=== PATIENT | male | born 1955 ===

== ENCOUNTER 2016-12-03 17:16 | Observation (INO) | payer OTHER ==
[2016-12-03 17:54] VITALS: TEMP 98.1
[2016-12-03] MEDS ORDERED: Iohexol 240 (50 ml) ONE (18:42)
[2016-12-03 18:45] LABS: BASO # 0.1 K/uL (0.0-0.2); BASO % 0.8 % (0.0-2.0); EOS # 0.2 K/uL (0.0-0.7); HEMATOCRIT 37.4 % (35.0-51.0); LYMPH # 2.8 K/uL (1.0-4.3); LYMPH % 35.1 % (20.0-40.0); MEAN CORPUSCULAR HEMOGLOBIN 32.5 pg (27.0-31.0); MEAN CORPUSCULAR HGB CONC 34.6 g/dL (33.0-37.0); MEAN PLATELET VOLUME 8.1 fl (7.2-11.7); MONO # 0.8 K/uL (0.0-0.8); NEUT % 51.1 % (50.0-75.0); NRBC % 0.1 % (0.0-0.0); RED CELL DISTRIBUTION WIDTH 12.6 % (11.5-14.5); WHITE BLOOD COUNT 7.9 K/uL (4.8-10.8)
[2016-12-03] MEDS ORDERED: Iohexol 240 (50 ml) PO ONE (18:45)
[2016-12-03] MEDS ORDERED: Sodium Chloride 0.9% 1,000 ML IV STA (18:46)
--- NOTE | 2016-12-03 19:01 | ED PDOC ---
HPI: Abdomen Time Seen by Provider: 12/03/16 18:00 Chief Complaint (Nursing): Abdominal Pain Chief Complaint (Provider): abdmonal pain History Per: Project Financial Analyst (Rosa Angela via [employer] ) History/Exam Limitations: language barrier (mohawk ) Onset/Duration Of Symptoms: Days (x 1) Outside of [place] travel?: No Location Of Pain/Discomfort: RUQ Associated Symptoms: denies: Fever, Chills, Nausea, Vomiting, Diarrhea Additional Complaint(s): Cody Taylor is a 61 year old male, with no previous medical history, who presents to the ED with complaints of right upper quadrant pain which began yesterday. Patient denies any fever, diarrhea, nausea or vomiting. Patient states to undergoing a cholecystectomy 3 months prior. PMD:none provided Past Medical History Reviewed: Historical Data, Nursing Documentation, Vital Signs Vital Signs: Last Vital Signs Temp 98.1 F 12/03/16 22:25 Pulse 87 12/03/16 22:25 Resp 16 12/03/16 22:25 BP 157/113 H 12/03/16 22:25 Pulse Ox 98 12/04/16 04:50 - Medical History PMH: No Chronic Diseases - Surgical History Surgical History: Cholecystectomy - Family History Family History: States: No Known Family Hx - Social History Current smoker - smoking cessation education provided: No Ex-Smoker (has not smoked in the last 12 months): Yes Alcohol: None Drugs: Denies - Home Medications Home Medications: Ambulatory Orders Medication Instructions Recorded Polyethylene Glycol 3350 [Miralax] 17 g PO QAM PRN #7 pkg 12/03/16 - Allergies Allergies/Adverse Reactions: Allergies Allergy/AdvReac Type Severity Reaction Status Date / Time No Known Allergies Allergy Verified 12/03/16 17:50 Review of Systems ROS Statement: Except As Marked, All Systems Reviewed And Found Negative Constitutional: Negative for: Fever, Chills Gastrointestinal: Positive for: Abdominal Pain (RUQ). Negative for: Nausea, Vomiting, Diarrhea Physical Exam - Reviewed Nursing Documentation Reviewed: Yes Vital Signs Reviewed: Yes - Physical Exam Appears: Positive for: Well, Non-toxic, No Acute Distress Cardiovascular/Chest: Positive for: Regular Rate, Rhythm Respiratory: Positive for: CNT, Normal Breath Sounds Gastrointestinal/Abdominal: Positive for: Tenderness (RUQ), Distended, Other ( surgical scar noted). Negative for: Mass, Guarding, Rebound Neurologic/Psych: Positive for: Alert, Oriented - Laboratory Results Result Diagrams: 12/03/16 18:40 12/03/16 18:40 - ECG O2 Sat by Pulse Oximetry: 98 (RA) Pulse Ox Interpretation: Normal Medical Decision Making Medical Decision Making: Initial Impression: abdominal pain r/o appendicitis Initial Plan: * CT abd pelvis PO & IV contrast * lipase * morphine 2 mg IV * IV NS 1,000 ml at 150 ml/hr * omnipaque 50 ml PO * pepcid 20 mg IV * urine culture * urinalysis * reevaluation Scribe Attestation: Documented by Sherine Tong, acting as a scribe for Brianne Canseco MD. Provider Scribe Attestation: All medical record entries made by the Scribe were at my direction and personally dictated by me. I have reviewed the chart and agree that the record accurately reflects my personal performance of the history, physical exam, medical decision making, and the department course for this patient. I have also personally directed, reviewed, and agree with the discharge instructions and disposition. ED OBSERVATION Date of observation admission: 12/03/16 - Observation admission statement Patient is being placed in observation because:: pending ED workup Disposition - Clinical Impression Clinical Impression: Abdominal pain, Constipation - Patient ED Disposition Is Patient to be Admitted: Transfer of Care - Disposition Disposition: Transfer of Care Disposition Time: 19:00 Condition: STABLE Patient Signed Over To: Reji Wilkes Handoff Comments: 19:00 patient is being signed out to Reji Wilkes MD pending ED workup and disposition
[2016-12-03 19:02] LABS: ALB/GLOB RATIO 1.1 (1.0-2.1); ALKALINE PHOSPHATASE 78 U/L (38-126); ALT/SGPT 24 U/L (21-72); AST/SGOT 27 U/L (17-59); BILIRUBIN,TOTAL 0.5 mg/dl (0.2-1.3); BLOOD UREA NITROGEN 16 mg/dl (9-20); CALCIUM 9.1 mg/dL (8.4-10.2); CARBON DIOXIDE 25 mmol/L (22-30); CHLORIDE 107 mmol/L (98-107); GFR AFRICAN-AMERICAN > 60; GLUCOSE,RANDOM 113 mg/dL (75-110); LIPASE 32 U/L (23-300); POTASSIUM 3.8 MMOL/L (3.6-5.0); SODIUM 143 mmol/l (132-148); TOTAL PROTEIN 7.3 G/DL (6.3-8.2)
[2016-12-03 19:09] LABS: RBC URINE 3 /hpf (0-3); URINE BACTERIA FEW (<OCC); URINE BILIRUBIN NEGATIVE (NEGATIVE); URINE BLOOD SMALL (NEGATIVE); URINE COLOR YELLOW (YELLOW); URINE GLUCOSE (UA) NEG (Normal); URINE KETONE NEGATIVE (NEGATIVE); URINE LEUKOCYTE ESTERASE TRACE Leu/uL (Negative); URINE PROTEIN 30 mg/dL (NEGATIVE); URINE UROBILINOGEN 0.2-1.0 mg/dL (0.2-1.0); WBC URINE 9 /hpf (0-5)
--- NOTE | 2016-12-03 19:50 | ED PDOC ---
- Laboratory Results Result Diagrams: 12/03/16 18:40 12/03/16 18:40 - ECG O2 Sat by Pulse Oximetry: 98 (RA) Pulse Ox Interpretation: Normal Medical Decision Making Medical Decision Makin:00 Patient is signed out to me from Brianne Canseco MD pending ED workup and disposition 20:51 CT abd pelvis FINDINGS: Lower thorax: No acute findings. Distal esophageal thickening noted ABDOMEN: Liver: Unremarkable. No mass. Gallbladder and bile ducts: Prior cholecystectomy No ductal dilation. Pancreas: Unremarkable. No mass. No ductal dilation. Spleen: Unremarkable. No splenomegaly. Adrenals: Unremarkable. No mass. Kidneys and ureters: Tiny exophytic isodense lesion in the lower pole of the right kidney image 98 No solid mass. No hydronephrosis. Stomach and bowel: Moderate to large stool in the colon No obstruction. No mucosal thickening. Appendix: No findings to suggest acute appendicitis. PELVIS: Bladder: Unremarkable. No mass. Reproductive: Unremarkable as visualized. ABDOMEN and PELVIS: Intraperitoneal space: Unremarkable. No free air. No significant fluid collection. Bones/joints: No acute fracture. No dislocation. Degenerative changes in the lumbar spine Soft tissues: Unremarkable. Vasculature: Unremarkable. No abdominal aortic aneurysm. Lymph nodes: Prominent peripancreatic lymph nodes IMPRESSION: Mild distal esophagitis Status post cholecystectomy without definite significant biliary ductal dilatation Question constipation Upon provider reevaluation patient is feeling remarkably better, is medically stable, and requires no further treatment in the ED at this time. Patient will be discharged home with Rx for miralax. Counseling was provided and all questions were answered regarding diagnosis and need for follow up with his PMD. There is agreement to discharge plan. Return if symptoms persist or worsen. Scribe Attestation: Documented by Sherine Tong, acting as a scribe for Reji Wilkes MD. Provider Scribe Attestation: All medical record entries made by the Scribe were at my direction and personally dictated by me. I have reviewed the chart and agree that the record accurately reflects my personal performance of the history, physical exam, medical decision making, and the department course for this patient. I have also personally directed, reviewed, and agree with the discharge instructions and disposition. Disposition - Clinical Impression Clinical Impression: Abdominal pain, Constipation - POA Present On Arrival: None - Disposition Disposition: Routine/Home Disposition Time: 20:30 Condition: STABLE
[2016-12-03] MEDS ORDERED: Iohexol 300 100 ML IJ ONE (20:22)
[2016-12-03] MEDS ORDERED: Sodium Chloride 0.9% 50 ML IV ONE (20:23)
[2016-12-03 22:41] VITALS: BP 157/113; PULSE 87; RESP 16
[2016-12-04 04:50] VITALS: O2SAT 98
--- NOTE | 2016-12-04 10:50 | CT ---
PROCEDURE: CT Abdomen and Pelvis with contrast HISTORY: abdominal pain right sided COMPARISON: None. TECHNIQUE: Contrast dose: Bilobed exit on or the meeting Ob there are region 1 of 5 two-view acute repair of treatment Radiation dose: Total exam DLP = 1066.57 mGy-cm. This CT exam was performed using one or more of the following dose reduction techniques: Automated exposure control, adjustment of the mA and/or kV according to patient size, and/or use of iterative reconstruction technique. FINDINGS: LOWER THORAX: Unremarkable. LIVER: Hepatic steatosis. No focal masses. No intrahepatic bile duct dilatation or perihepatic ascites. GALLBLADDER AND BILE DUCTS: Status post cholecystectomy. No abnormality is seen in the gallbladder fossa. PANCREAS: Unremarkable. No gross lesion or ductal dilatation. SPLEEN: Unremarkable. ADRENALS: Unremarkable. No mass. KIDNEYS AND URETERS: Unremarkable. No hydronephrosis. No solid mass. VASCULATURE: Unremarkable. No aortic aneurysm. BOWEL: Unremarkable. No obstruction. No gross mural thickening. Constipation without fecal impaction or obstruction. APPENDIX: Normal appendix. PERITONEUM: Unremarkable. No free fluid. No free air. LYMPH NODES: Unremarkable. No enlarged lymph nodes. BLADDER: Unremarkable. REPRODUCTIVE: Unremarkable. BONES: No acute fracture. OTHER FINDINGS: None. IMPRESSION: No significant or acute findings to account for/ related to the clinical presentation. Concordant results (preliminary interpretation) provided by [facility]. Procedure Completed: 20:35. Preliminary ([facility]) Report: Dictated and Authenticated: 20:51. Final Interpretation: 10:47. December 04, 2016.
== END 2016-12-03 22:35 | disposition home or self-care (01) ==
LOC: H.ER 17:16 → H.EROBSV 18:49
PROVIDERS: ADMIT Emergency Medicine; ATTEND Emergency Medicine
DX: K20.9 Esophagitis, unspecified (principal); K59.00 Constipation, unspecified; Z90.49 Acquired absence of other specified parts of digestive tract; Z87.891 Personal history of nicotine dependence

== ENCOUNTER 2017-04-25 01:09 | Observation (INO) | payer SELFPAY ==
[2017-04-25 01:27] VITALS: BMI 32.3
[2017-04-25 01:31] VITALS: RESP 16; TEMP 97.7; O2SAT 98
--- NOTE | 2017-04-25 02:25 | ED PDOC ---
HPI: Psych/Substance Abuse Time Seen by Provider: 04/25/17 01:32 Chief Complaint (Nursing): Alcohol Ingestion Chief Complaint (Provider): Alcohol Intoxication ED Caveat: Intoxicated History Per: EMS History/Exam Limitations: intoxication Additional Complaint(s): 61 year old male, with past surgical history of cholecystectomy per old chart, brought in by [facility] for intoxication and apparent fall outside. History per EMS as patient is poor historian due to intoxication. Patient noted to have knee abrasions. Past Medical History Reviewed: Historical Data, Nursing Documentation, Vital Signs, Unable To Obtain Vital Signs: Last Vital Signs Temp 97.7 F 04/25/17 01:28 Pulse 90 04/25/17 01:28 Resp 16 04/25/17 01:28 BP 118/68 04/25/17 01:28 Pulse Ox 98 04/25/17 01:28 - Surgical History Surgical History: Cholecystectomy (history obtained from old chart ) - Family History Family History: States: No Known Family Hx - Home Medications Home Medications: Ambulatory Orders Medication Instructions Recorded Polyethylene Glycol 3350 [Miralax] 17 g PO QAM PRN #7 pkg 12/03/16 - Allergies Allergies/Adverse Reactions: Allergies Allergy/AdvReac Type Severity Reaction Status Date / Time No Known Allergies Allergy Verified 04/25/17 01:27 Review of Systems Review Of Systems: ROS cannot be obtained secondary to pt's inabilty to answer questions. Physical Exam - Reviewed Nursing Documentation Reviewed: Yes Vital Signs Reviewed: Yes - Physical Exam Appears: Positive for: Non-toxic, No Acute Distress Head Exam: Positive for: ATRAUMATIC, NORMOCEPHALIC Skin: Positive for: Normal Color, Warm, Dry Eye Exam: Positive for: EOMI, Normal appearance, PERRL Neck: Positive for: Normal, Painless ROM, Supple Cardiovascular/Chest: Positive for: Regular Rate, Rhythm. Negative for: Murmur Respiratory: Positive for: Normal Breath Sounds. Negative for: Respiratory Distress Gastrointestinal/Abdominal: Positive for: Normal Exam, Soft. Negative for: Tenderness Back: Positive for: Normal Inspection. Negative for: L CVA Tenderness, R CVA Tenderness, Other (midline tenderness) Extremity: Positive for: Normal ROM, Other (superficial abrasion to bilateral knees ). Negative for: Pedal Edema Neurologic/Psych: Positive for: Other (Obtunded but easily arousable, Speech slurred) - ECG O2 Sat by Pulse Oximetry: 98 Medical Decision Making Medical Decision Making: Impression: 61 year old intoxicated male with knee abrasions Plan: XRays Alcohol level Tetanus Scribe Attestation: Documented by Gopi Keen acting as a scribe for Reji Wilkes MD. MD [place] Attestation: All medical record entries made by the Scribe were at my direction and personally dictated by me. I have reviewed the chart and agree that the record accurately reflects my personal performance of the history, physical exam, medical decision making, and the department course for this patient. I have also personally directed, reviewed, and agree with the discharge instructions and disposition. ED OBSERVATION Date of observation admission: 04/25/17 Time of observation admission: 02:00 - Progress Note Progress Note: 04/25/17 02:00 Patient placed on ED observation pending sobriety. 04/25/17 03:30 Vitals stable. No changes. Patient resting comfortably. Bilateral knee X-rays show no acute fracture or dislocation. 04/25/17 05:00 Vitals stable. No changes. Patient resting comfortably. 04/25/17 06:00 Patient clinically sober and stable for discharge. Scribe Attestation: Documented by Gopi Keen acting as a scribe for Reji Wilkes MD. MD [place] Attestation: All medical record entries made by the Scribe were at my direction and personally dictated by me. I have reviewed the chart and agree that the record accurately reflects my personal performance of the history, physical exam, medical decision making, and the department course for this patient. I have also personally directed, reviewed, and agree with the discharge instructions and disposition. Disposition - Clinical Impression Clinical Impression: Alcohol abuse with intoxication, Knee abrasion - Disposition Disposition: Routine/Home Disposition Time: 01:45 Condition: STABLE
[2017-04-25 06:02] VITALS: BP 123/84; PULSE 82
--- NOTE | 2017-04-25 11:16 | RAD ---
PROCEDURE: Bilateral Knee Radiographs. HISTORY: fall COMPARISON: None. FINDINGS: BONES: Right Knee: Normal. No fracture. Left Knee: Normal. No fracture. JOINTS: Right Knee: Normal. No osteoarthritis. Left knee: Normal. No osteoarthritis. SOFT TISSUES: Right Knee: Normal. Left Knee: Normal. JOINT EFFUSION: Right Knee: None. Left Knee: None. OTHER FINDINGS: None. IMPRESSION: No evidence of acute fracture or dislocation.
== END 2017-04-25 06:11 | disposition home or self-care (01) ==
LOC: H.ER 01:09 → H.EROBSV 01:45
PROVIDERS: ADMIT Emergency Medicine; ATTEND Emergency Medicine
DX: F10.129 Alcohol abuse with intoxication, unspecified (principal); Y90.8 Blood alcohol level of 240 mg/100 ml or more; S80.212A Abrasion, left knee, initial encounter; S80.211A Abrasion, right knee, initial encounter; W18.30XA Fall on same level, unspecified, initial encounter; Z23 Encounter for immunization; Y93.9 Activity, unspecified; Y92.480 Sidewalk as the place of occurrence of the external cause
CPT/HCPCS: 36415; 73562; 82948; 90471; 90715; 99284; G0378; G0480